=== PATIENT | female | born 2000 | race Caucasian/White ===

== ENCOUNTER 2024-12-31 15:30 | Emergency (ER) | payer BC ==
[2024-12-31 15:51] VITALS: BP 143/95; PULSE 73; RESP 20; TEMP 98.2; BMI 40.4
[2024-12-31] MEDS ORDERED: IBUPROFEN 600 MG TABLET (FP) PO ONE (16:37)
[2024-12-31] MEDS: IBUPROFEN 600 MG TABLET (FP) PO ONE (16:41)
== END 2024-12-31 18:14 | disposition home or self-care (01) ==
LOC: JERFT 15:30 → JER 15:30 → JERFT 18:14
DX: M25.462 Effusion, left knee (principal); W01.0XXA Fall on same level from slipping, tripping and stumbling without subsequent striking against object, initial encounter; Y92.512 Supermarket, store or market as the place of occurrence of the external cause; Y93.01 Activity, walking, marching and hiking
CPT/HCPCS: 73070-TC-LT-FY; 73502-TC-LT-FY; 73562-TC-RT-FY; 99284-25